=== PATIENT | female | born 1955 | race Caucasian/White ===

== ENCOUNTER 2020-11-23 07:35 | Day surgery (SDC) | payer BC ==
[~2020-11-23 07:35] MED LIST: Lactated Ringers 1,000 ML IV SCH; Lidocaine 1%/Sod Bicarbonate in NS 8.4% 1 ML Syringe IDERM PRN; Sodium Chloride 0.9% 10 ML Syringe FLUSH PRN
[2020-11-23] MEDS ORDERED: Lidocaine 1% 4 ML ONE (08:10)
[2020-11-23] MEDS ORDERED: Propofol 200 MG/20 ML SDV ONE ×2 (08:10→08:48)
--- NOTE | 2020-11-23 08:20 | PCM.PREANE ---
Preanesthetic Assessment - Procedure Proposed Procedure: Screening Colonoscopy - Anesthesia/Transfusion/Family Hx Anesthesia History: Prior Anesthesia Reaction Type of Anesthesia Reaction: Excessive Nausea/Vomiting (With General Anesthesia. No problems with her last colonoscopy.) Family History of Anesthesia Reaction: No - Review of Systems General: No Symptoms Pulmonary: No Symptoms Cardiovascular: Other (Hypertensive today. Checks her blood pressure at home and is not this high. Will continue to monitor today. ) Gastrointestinal: No Symptoms Neurological: No Symptoms, Other (Arthritis, notable deformity to bilateral hands/fingers. ) Other: Reports: None (Menopausal, hot flashes. ), Thyroid Problems (Thyroidectomy ), Sinus Problem (Rhinitis, chronic. ) - Physical Assessment NPO Status Date: 11/23/20 NPO Status Time: 04:00 (Colon Prep) Vital Signs: Last Vital Signs Temp 36.7 C 11/23/20 07:35 Pulse 82 11/23/20 07:35 Resp 18 11/23/20 07:35 BP 144/92 H 11/23/20 08:00 Pulse Ox 97 11/23/20 07:35 Height: 1.57 m Weight: 75.9 kg ASA Class: 2 Mental Status: Alert & Oriented x3 Airway Class: Mallampati = 2 Dentition: Reports: Normal Dentition Thyro-Mental Finger Breadths: 2 Mouth Opening Finger Breadths: 3 ROM/Head Extension: Full Lungs: Clear to Auscultation, Normal Respiratory Effort Cardiovascular: Regular Rate, Regular Rhythm - Allergies Allergies/Adverse Reactions: Allergies Allergy/AdvReac Type Severity Reaction Status Date / Time Penicillins Allergy Hives Verified 11/23/20 08:04 - Anesthesia Plan Pre-Op Medication Ordered: None - Acknowledgements Anesthesia Type Planned: MAC Pt an Appropriate Candidate for the Planned Anesthesia: Yes Alternatives and Risks of Anesthesia Discussed w Pt/Guardian: Yes Pt/Guardian Understands and Agrees with Anesthesia Plan: Yes PreAnesthesia Questionnaire HEENT History: Reports: Impaired Vision Other HEENT History: postnasal discharge, chronic larynopharyngitis Cardiovascular History: Reports: High Cholesterol Genitourinary History: Reports: Renal Calculus Other OB/BYN History: endometriosis, uterine ablation Musculoskeletal History: Reports: Arthritis Endocrine/Metabolic History: Reports: Hypothyroidism Other Endocrine/Metabolic History: graves disease - Past Surgical History GI Surgical History: Reports: Appendectomy, Colonoscopy Female Surgical History: Reports: Endometrial Ablation Endocrine Surgical History: Reports: Thyroidectomy Musculoskeletal Surgical History: Reports: Knee Replacement - SUBSTANCE USE Tobacco Use Status *Q: Never Tobacco User Recreational Drug Use History: No - HOME MEDS Home Medications: Home Meds Calcium Carbonate/Vitamin D3 [Calcium 1,000 + D3 Caplet] 1 cap PO DAILY 11/22/20 [History] Celecoxib 200 mg PO DAILY 11/22/20 [History] Levothyroxine Sodium [Levo-T] 112 mcg PO DAILY 11/22/20 [History] Magnesium Glycinate, Mag Oxide [Magnesium Glycinate] 120 mg PO DAILY 11/22/20 [History] Rosuvastatin Calcium 10 mg PO DAILY 11/22/20 [History] - CURRENT (IN HOUSE) MEDS Current Meds: Current Medications Lactated Ringer's (Ringers, Lactated) 1,000 mls @ 125 mls/hr IV ASDIRECTED MOE Last Admin: 11/23/20 07:47 Dose: 125 mls/hr Documented by: Lidocaine/Sodium Bicarbonate (Lidocaine 1%/Sod Bicarbonate In Ns 8.4% 1 Ml Syringe) 0.25 ml IDERM ONETIME PRN PRN Reason: Prior to IV Start Last Admin: 11/23/20 07:47 Dose: 0.25 ml Documented by: Sodium Chloride (Sodium Chloride 0.9% 10 Ml Syringe) 10 ml FLUSH ASDIRECTED PRN PRN Reason: Keep Vein Open Discontinued Medications Lidocaine HCl (Xylocaine-Mpf 1%) Confirm Administered Dose 4 mls @ as directed .ROUTE .STK-MED ONE Stop: 11/23/20 08:11 Propofol (Propofol 200 Mg/20 Ml Sdv) Confirm Administered Dose 200 mg .ROUTE .STK-MED ONE Stop: 11/23/20 08:11
--- NOTE | 2020-11-23 09:22 | PCM48HPAN ---
Post Anesthesia Note - EVALUATION WITHIN 48HRS OF ANESTHETIC Vital Signs in Normal Range: Yes Patient Participated in Evaluation: Yes Respiratory Function Stable: Yes Airway Patent: Yes Cardiovascular Function Stable: Yes Hydration Status Stable: Yes Pain Control Satisfactory: Yes Nausea and Vomiting Control Satisfactory: Yes Mental Status Recovered: Yes Vital Signs: Last Vital Signs Temp 36.4 C 11/23/20 09:11 Pulse 83 11/23/20 09:11 Resp 16 11/23/20 09:11 BP 119/74 11/23/20 09:11 Pulse Ox 93 L 11/23/20 09:11
--- NOTE | 2020-11-23 09:26 | PCM.PRNOTE ---
- Free Text/Narrative Note: Date: 11/23/2020 Procedure: screening colonoscopy History: normal colonoscopy 10 years ago Endoscopist: Kimani Chou MD Findings: Bowel prep was not very good, with copious amount of dark brown fluid and solid particulate matter. Appendiceal orifice was visualized. No polyps were identified. No diverticulosis. No hemorrhoidal disease. Detailed Report: The patient was taken to the endoscopy suite and placed in left lateral decubitus position. Timeout was performed and monitored anesthesia care was initiated. Visual inspection of the anus revealed no abnormality. Digital rectal exam was unremarkable. The colonoscope was inserted and advanced to the cecum. The appendiceal orifice was visualized. The scope was slowly withdrawn and mucosal surfaces carefully inspected. Bowel prep was not ideal, with copious dark brown turbid fluid and solid particulate matter including corn kernels etc. As best as possible, mucosal surfaces were inspected and no polyps were identified. There is no evidence of diverticulosis. No evidence of hemorrhoidal disease on retroflexion of the scope within the rectum. Air was suctioned from the rectum prior to withdrawal of the scope. The patient tolerated the procedure well. All there was no large polyp or other concerning pathology noted, there is no guarantee that the colon is without polyps given the quality of the prep. Therefore, I discussed with the patient my recommendation for repeat colonoscopy in 5 years.
[2020-11-23 09:53] VITALS: BP 136/75; PULSE 68
== END 2020-11-23 09:55 | disposition home or self-care (01) ==
LOC: JD.SDS 07:35
PROVIDERS: ATTEND Surgery
DX: Z12.11 Encounter for screening for malignant neoplasm of colon (principal); E78.00 Pure hypercholesterolemia, unspecified; E03.9 Hypothyroidism, unspecified; Z88.0 Allergy status to penicillin; Z79.899 Other long term (current) drug therapy; Z79.890 Hormone replacement therapy; Z90.49 Acquired absence of other specified parts of digestive tract; Z98.890 Other specified postprocedural states
CPT/HCPCS: 45378; J2704; J7120; 00812